=== PATIENT | male | born 1975 | race Caucasian/White ===

== ENCOUNTER 2017-10-17 10:20 | Emergency (ER) | payer MEDICAID ==
[2017-10-17 11:00] VITALS: BP 125/93
--- NOTE | 2017-10-17 11:04 | EDM.PDOC ---
ED HPI GENERAL MEDICAL PROBLEM - General Chief Complaint: Upper Extremity Injury/Pain Stated Complaint: RIGHT ARM INJURY Time Seen by Provider: 10/17/17 11:03 Source of Information: Reports: Patient History Limitations: Reports: No Limitations - History of Present Illness INITIAL COMMENTS - FREE TEXT/NARRATIVE: 42-year-old male presents the ED for evaluation of right forearm and elbow pain. Reports that about 8:30 last night he slipped and fell on the ice landing on outstretched right hand. Of note he is right-hand dominant. 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 He ice the area but overnight the areas become more painful and he has very limited ability to pronate or supinate at the elbow. She did not hit his head and has no pain in his neck back or lower extremities. Also his left extremity was not injured. Onset: Sudden Onset Date: 10/16/17 Onset Time: 20:30 Duration: Hour(s): Location: Reports: Upper Extremity, Right (Right proximal forearm and elbow area.) Quality: Reports: Ache, Throbbing Severity: Moderate Improves with: Reports: Rest, Other (Ice) Worsens with: Reports: Other, Movement Context: Reports: Trauma (Slipped and fell on the ice on outstretched right hand last evening.). Denies: Activity (Especially attempt to pronate or supinate.), Exercise, Lifting, Sick Contact Associated Symptoms: Reports: No Other Symptoms Treatments INTAKE CLERK: Reports: NSAIDS (Took Motrin last night.) Right Elbow Pain Score (Numeric/FACES): 4 - Related Data Allergies Allergy/AdvReac Type Severity Reaction Status Date / Time amoxicillin trihydrate Allergy Itching Verified 10/17/17 10:56 [From Augmentin] potassium clavulanate Allergy Itching Verified 10/17/17 10:56 [From Augmentin] Home Meds: Home Meds . [No Known Home Meds] 10/17/17 [History] Past Medical History Other Genitourinary History: vasectomy; cyst on kidney Other Musculoskeletal History: hand fx Neurological History: Reports: Seizure Psychiatric History: Reports: Anxiety Social & Family History - Tobacco Use Smoking Status *Q: Current Every Day Smoker Years of Tobacco use: 30 Packs/Tins Daily: 1.5 - Alcohol Use Days Per Week of Alcohol Use: 0 - Recreational Drug Use Recreational Drug Use: Yes Drug Use in Last 12 Months: Yes Recreational Drug Type: Reports: Marijuana/Hashish Recreational Drug Use Frequency: Weekly - Living Situation & Occupation Living situation: Reports: Single Occupation: Employed (Self-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 artist) Review of Systems - Review of Systems Review Of Systems: See Below Constitutional: Reports: No Symptoms Eyes: Reports: No Symptoms Ears: Reports: No Symptoms Nose: Reports: No Symptoms Mouth/Throat: Reports: No Symptoms Respiratory: Reports: No Symptoms Cardiovascular: Reports: No Symptoms GI/Abdominal: Reports: No Symptoms Musculoskeletal: Reports: Other Skin: Reports: No Symptoms (Pain right proximal forearm and elbow area) Neurological: Reports: No Symptoms Psychiatric: Reports: No Symptoms ED EXAM, GENERAL - Physical Exam Exam: See Below Exam Limited By: No Limitations General Appearance: Alert, WD/WN, Anxious, Mild Distress, Other (Regarding of his right upper extremity.) Eye Exam: Bilateral Eye: Normal Inspection Throat/Mouth: Normal Inspection, Normal Lips, Normal Oropharynx Head: Atraumatic, Normocephalic Neck: Normal Inspection, Supple, Non-Tender, Full Range of Motion. No: Lymphadenopathy (L), Lymphadenopathy (R) Respiratory/Chest: No Respiratory Distress, Lungs Clear, Normal Breath Sounds Cardiovascular: Normal Peripheral Pulses, Regular Rate, Rhythm, No Murmur, No Rub Peripheral Pulses: 2+: Radial (L), Radial (R) GI/Abdominal: Normal Bowel Sounds, Soft, Non-Tender, No Organomegaly Back Exam: Normal Inspection, Full Range of Motion, CVA Tenderness (L), CVA Tenderness (R) Extremities: Non-Tender, Other (He has proximal forearm tenderness particularly in the extensor muscle group I can feel a hematoma. Is very limited ability to pronate supinate and does have pain over the radial head. There is no obvious pain or swelling or deformity of the humerus her biceps area. No pain in the wrist or hand. Is painful to make a full fist with extensor muscle tenderness.) Neurological: Alert, Oriented, CN II-XII Intact, Normal Cognition Psychiatric: Normal Affect, Normal Mood ( Is good radial and ulnar pulses at the wrist.) Skin Exam: Warm, Dry, Intact, Normal Color, No Rash Course - Vital Signs Last Recorded V/S: Last Vital Signs Temp 37.1 C 10/17/17 10:57 Pulse 81 10/17/17 10:57 Resp BP 125/93 H 10/17/17 10:57 Pulse Ox 99 10/17/17 10:57 - Radiology Interpretation Free Text/Narrative:: 42-year-old male presents to the ED with acute injury to his right proximal forearm and elbow area. He slipped and fell on ice last night about 8:30. He did ice it overnight but it is becoming more painful and with limited range of motion of the elbow this morning especially with pronation supination. No other injuries occurred. Plan x-ray right forearm to be done - Re-Assessments/Exams Free Text/Narrative Re-Assessment/Exam: 10/17/17 11:42 x-ray of the right forearm is negative for any fractures of the radial head or ulnar radius toxin only. Stools aspects are normal. Injuries are therefore soft tissue to the surrounding muscles. May benefit from an Alvin wrap to the area and ice pack for one half hour out of every 4 hours today and tomorrow to reduce pain and swelling. Departure - Departure Time of Disposition: 11:55 Disposition: Home, Self-Care 01 Condition: Fair Clinical Impression: Contusion of right forearm, initial encounter - Discharge Information Instructions: Contusion Referrals: Benjamín Teague MD [Primary Care Provider] - Forms: ED Department Discharge Additional Instructions: Evaluation in the emergency room today in regards to a slip and fall on ice last evening on outstretched right hand. This resulted in blunt force trauma to the upper or proximal forearm and elbow area. I could palpate swelling within the extensor muscle group which is on the backside of your forearm. This limits her ability to pronate or supinate which means movement that opens a doorknob etc. X-rays of your forearm were done in do not reveal any broken bones particular there is no evidence of radial head fracture at the elbow and no blood within the joint. So therefore to the surrounding muscles. Treatment is Alvin wrap on during the day off at night. Ice pack to the area for one half hour out of every 4 hours today. After this may apply heat to the area in the similar fashion. May use Motrin 6 mg every 6 hours or Aleve 2 tablets every 8 hours for pain and inflammation reduction. Expect gradual improvement over the next 3-7 days.
--- NOTE | 2017-10-17 12:50 | CR ---
Right forearm: Two views of the right forearm were obtained. Comparison: No prior forearm study. No fracture or other abnormality is identified. Impression: 1. No abnormality is identified on right forearm study. Diagnostic code #1
== END 2017-10-17 12:05 | disposition home or self-care (01) ==
LOC: JD.ED 10:20
DX: S50.11XA Contusion of right forearm, initial encounter (principal); Z88.1 Allergy status to other antibiotic agents; F17.210 Nicotine dependence, cigarettes, uncomplicated; W00.0XXA Fall on same level due to ice and snow, initial encounter
CPT/HCPCS: 73090-26-RT; 73090-RT; 99283